=== PATIENT | female | born 1985 | race African-American/Black ===

== ENCOUNTER 2016-12-18 18:19 | Observation (INO) | payer MEDICARE, OTHER ==
--- NOTE | ~2016-12-18 | BMI ---
[facility] Nutrition Therapy DATE: 12/19/16 Patient: SOHA DELATORRE Physician: CHRISTINE Address: [address] [place] [address] Room/Bed: [address] [place] [address], Zip: [place] [address] Admit Date: 12/18/16 Date of : [birth year] Height: 6 0 Weight: 336 152.5 HIGH BMI NOTE: DX: 31 Y.O. FEMALE ADMITTED FOR HYPERGLYCEMIA ANTHROPOMETRICS: 6'0", WT: 336# (153 KG), BMI: 45.6 DIET: NO DIET ORDER INTERVENTION: 1. NO DIET ORDER RECOMMENDATIONS: 1. ONCE MEDICALLY FEASIBLE, ADVANCE DIET INDICATED TO CC+HH TO PROMOTE GRADUAL WEIGHT LOSS TOWARDS HEALTHY BMI (19.0-25.0) OR +/-10%IBW RD WILL F/U PER PROTOCOL Respectfully, KYLAH ALVAREZ MS, RD, LD Food and Nutritional Services [facility] cc: client file
--- NOTE | ~2016-12-18 | CR72 ---
[facility] A Service of [facility] & [facility] RADIOLOGY TEXT RESULTS PATIENT: SOHA DELATORRE LOCATION: [facility] [id number] : [birth year] UNIT #: [id number] AGE: [address]: Solo Mackey MD SEX: F ORDER DR: [id number] [facility] [address] [facility]. [place], [place] [address] [id number] I MR#: [id number] Acc #: [id number] NAME: SOHA DELATORRE : 1985 SEX: F STUDY DATE/TIME: 12/18/2016 18:25 UNIT: [facility] ROOM: 79341 STUDY DESCRIPTION: CR Chest Single View Portable Attending Physician: Solo Mackey M.D. Referring Physician: Manuel Adkins M.D. Ordering Physician: Daniel Nguyen M.D. Primary Care Physician: Manuel Adkins M.D. MEDICAL IMAGING REPORT This report is preliminary unless electronic signature is present EXAM Portable chest HISTORY Cough and congestion for 3 days. FINDINGS A single AP portable view of the chest shows both lungs to be clear. The heart is normal in size. The mediastinal contour is normal. No significant bone abnormalities are seen. IMPRESSION Normal portable chest. Dictated by... Vitor Sullivan M.D. THIS IS AN ELECTRONICALLY VERIFIED REPORT Vitor Sullivan M.D. at 12/19/2016 3:35 PM DFL/pcl TD: 12/18/2016 23:54 JOB #: [id number] MEDICAL IMAGING REPORT COPY
--- NOTE | ~2016-12-18 | HP ---
Unit #: [id number] #: [id number] Patient: SOHA DELATORRE [id number] [address] [address] [id number] I MR#: [id number] NAME: SOHA DELATORRE ROOM: 573 Age: 31 Sex: F Admission Date: 12/18/2016 : 1985 Attending Physician: Solo Mackey M.D. Referring Physician: Manuel Adkins M.D. Primary Care Physician: Manuel Adkins M.D. HISTORY AND PHYSICAL CHIEF COMPLAINT High blood sugar. HISTORY OF PRESENT ILLNESS This is a 31-year-old female with history of insulin dependent diabetes, acid reflux. She has had a recent urinary tract infection one week ago, been prescribed on Cipro. She said after that she had some upper respiratory symptoms. She went to urgent care and started on steroids, she had been on prednisone. She said she take the blood sugar and her Accu-Cheks were staying high on the machine and she says she has been having some dizziness and lightheadedness and she came to the emergency room, on blood sugar she was found to be 594 and eventually being admitted for hyperglycemia. She denies chest pain, denies fever, chills, cough, or other complaint. PAST MEDICAL HISTORY 1. History of insulin dependent diabetes. 2. Gastroesophageal reflux disease. 3. Obesity. PAST SURGICAL HISTORY Denies any surgical intervention. SOCIAL HISTORY She said that she had been smoking, history of marijuana in the past. She said she had been smoking 8 to 10 cigarettes daily, did drink alcohol socially. Denied illicit drug use. ALLERGIES Aspirin. HOME MEDICATIONS Is the followin. Metformin 1 gram b.i.d. 2. Levemir 60 units at bedtime 3. Levemir 25 units subcu daily 4. Cipro 500 mg b.i.d. 5. Prednisone 40 mg in the morning and 20 mg daily 6. Prilosec 20 mg daily 7. Promethazine cough D one spoon q.6h p.r.n. REVIEW OF SYSTEMS Negative except in the history of present illness. Unit #: [id number] #: [id number] Patient: SOHA DELATORRE PHYSICAL EXAMINATION GENERAL: Middle-aged female lying in the bed comfortably, currently not in any distress. She is alert, awake, and oriented x3, comfortable, not in any distress. VITAL SIGNS: Current vitals are the following, temperature 98.2, heart rate 98, respiratory rate 16, and blood pressure 125/73, oxygen 98% on room air. HEENT EXAMINATION: Pupils equally reactive to light and accommodation. Head: Normocephalic and atraumatic. NECK: Supple. No jugular venous distention. HEART: S1 and S2, regular rate and rhythm. ABDOMEN: Soft, nontender, and nondistended. Bowel sounds are positive. EXTREMITIES: Inspection normal. No cyanosis, no clubbing, and no edema. NEUROLOGIC: No focal neurologic deficit. DIAGNOSTIC STUDIES LABORATORY: Laboratory workup is the following, flu is negative. Glucose 544. ABG shows, pH 7.39, O2 46, CO2 41. Chemistry, sodium 131, potassium 5, chloride 95, glucose 594, BUN 23, creatinine 1.23, LFT within normal limits. Total protein 9.1, white count is 18, hemoglobin is 14, hematocrit 44, platelets 360. Urine, glucose more than 1000, WBC 5-10. IMAGING: Chest x-ray is negative. ASSESSMENT/PLAN 1. Hyperglycemia most likely secondary to prednisone. Admit the patient, stop the prednisone, continue home dose of Levemir and place on sliding scale, continue metformin. 2. Urinary tract infection. She had been treated with Cipro, hold Cipro and while in the hospital start on IV Rocephin and followup culture. 3. Leukocytosis is most likely secondary to steroids. 4. History of insulin dependent diabetes. 5. Gastroesophageal reflux disease. 6. Obesity. 7. DVT prophylaxis, place the patient on Lovenox. Dictated by Karen Zurita M.D. GABY/ilir TD: 12/19/2016 11:43 JOB #: [id number] HISTORY AND PHYSICAL X X HISTORY AND PHYSICAL
--- NOTE | ~2016-12-18 | DS ---
Unit #: [id number] #: [id number] Patient: SOHA ALFONSO [id number] [address] [place], [place] [address] [id number] I MR#: [id number] NAME: SOHA ALFONSO ROOM: 573 Age: 31 Sex: F Admission Date: 12/18/2016 : 1985 Discharge Date: 12/19/2016 Attending Physician: Solo Mackey M.D. Referring Physician: Manuel Adkins M.D. Primary Care Physician: Manuel Adkins M.D. DISCHARGE SUMMARY PRINCIPAL DIAGNOSES 1. Severe steroid-induced hyperglycemia. 2. Diabetes mellitus type 2, insulin requiring, uncontrolled, with hemoglobin A1c of 11.4. 3. Acute bronchitis. 4. Questionable urinary tract infection with pending urine culture. 5. Gastroesophageal reflux disease. 6. Morbid obesity. 7. Probable chronic bronchitis. CONSULTANTS None. PROCEDURES Chest x-ray on December 18, 2016, which was normal. CLINICAL HISTORY AND HOSPITAL COURSE Ms. Alfonso is a 31-year-old female with a history of diabetes, who presented to the emergency department after glucometer reading at home read high. Please refer to History and Physical for further details. Glucose here upon presentation was elevated at 594. Patient was subsequently placed in observation for evaluation. Patient was placed back on her home dose of insulin, and her blood sugars still remained significantly elevated in the 300s. However, her hemoglobin A1c is also significantly elevated at 11.4. I am going to adjust her doses of Levemir upon discharge, but I honestly think she would benefit from the addition of mealtime NovoLog to improve sugar control. I have discussed this with the patient, and she can further discuss this with her primary care provider at followup. Patient again had recently been placed on steroids due to her bronchitis, and of course, these were discontinued. Her white blood cell count has been elevated anywhere from approximately 17,000 to 27,000, but she has remained afebrile and clinically looks quite well. I am going to add some Omnicef for bronchitis upon discharge, and white blood cell count can be followed up as an outpatient. Patient's other chronic conditions remain stable, and she will be discharged home today. DISCHARGE CONDITION Stable. Unit #: [id number] #: [id number] Patient: SOHA ALFONSO DISCHARGE STATUS Discharge to home. DISCHARGE MEDICATIONS 1. Omnicef 300 mg p.o. b.i.d. for 5 days. 2. Metformin 1000 mg b.i.d. 3. Promethazine DM cough syrup 5 mL q.4 hours p.r.n. for cough. 4. Levemir 80 units subcutaneously at bedtime and 35 units in the morning. 5. Prilosec 20 mg daily. DISCHARGE INSTRUCTIONS 1. Patient was instructed to follow a heart-healthy, constant carbohydrate diet, and she has received diabetic education. 2. She can increase her activity as tolerated. 3. She should check Accu-Cheks at least twice daily at home, once fasting, and one (1) two hours postprandial to monitor sugar readings. FOLLOWUP Patient should follow up with her primary care physician, Dr. Adkins, in two weeks. Dictated by... Vannesa Robles M.D. Patricia TD: 12/20/2016 20:28 JOB #: [id number] DISCHARGE SUMMARY X Vannesa Robles MD DISCHARGE SUMMARY
[2016-12-18 17:01] LABS: ARTERIAL BLD GAS O2 SATURATION 77.7 % (90.0-100.0); ARTERIAL BLOOD GAS HCO3 25.2 mmol/L; ARTERIAL BLOOD GAS MET HB 0.7 %sat (0.0-2.0); ARTERIAL BLOOD GAS PCO2 41.4 mmHg (35.0-45.0); ARTERIAL BLOOD GAS pH 7.393 (7.350-7.450)
[2016-12-18 17:02] LABS: ARTERIAL BLOOD GAS PO2 46.3 mmHg (80.0-100); ARTERIAL DRAW? NO
[2016-12-18 17:25] LABS: BASOPHIL# 0.1 X10e3 (0-0.3); BASOPHIL% 0.3 % (0-2.5); EOSINOPHIL% 0.1 % (0.0-7.0); HEMATOCRIT 44.2 % (35.0-45.0); HEMOGLOBIN 14.6 gm/dL (12.0-16.0); LYMPHOCYTE# 3.4 X10e3 (1.0-3.5); LYMPHOCYTE% 17.8 % (17.0-45.0); MEAN CELL VOLUME 91.4 FL (83-96); MEAN CORPUSCULAR HEMOGLOBIN 30.1 PG (28-34); MEAN PLATELET VOLUME 9.6 FL (6.5-11.5); MONOCYTE# 0.7 X10e3 (0-1.0); MONOCYTE% 3.6 % (3.0-12.0); NEUTROPHIL# 14.8 X10e3 (1.5-7.1); NEUTROPHIL% 78.2 % (40-75); PLATELET COUNT 360 X10e3 (140-420); RED BLOOD COUNT 4.84 X10e (3.90-5.30); RED CELL DISTRIBUTION WIDTH 14.2 % (11.0-15.5); WHITE BLOOD COUNT 18.9 X10e3 (4.0-10.5)
[2016-12-18 17:27] LABS: DIFF IND YES
[2016-12-18 17:28] LABS: ALBUMIN SERUM 4.3 g/dL (3.5-5.0); ALKALINE PHOSPHATASE 123 U/L (32-92); ALT (SGPT) 13 U/L (10-40); AST (SGOT) 15 U/L (10-42); BETA HYDROXYBUTYRATE 1.14 MMOL/L (0.02-0.27); BILIRUBIN, DIRECT 0.1 mg/dL (0.0-0.2); BILIRUBIN,TOTAL 1.1 mg/dL (0.2-2.0); BLOOD UREA NITROGEN 23 mg/dL (9-23); BUN/CREATININE RATIO 19.16; CALCIUM SERUM 9.4 mg/dL (8.4-10.2); CARBON DIOXIDE 23 mmol/L (22-31); CHLORIDE 95 mmol/L (100-111); CREATININE SERUM 1.2 mg/dL (0.6-1.4); GLOM FILT RATE Estimated ABOVE60 mL/min (>60); PROTEIN TOTAL SERUM 9.1 g/dL (6.0-8.3); SODIUM 131 mmol/L (135-145)
[2016-12-18 17:29] LABS: GLUCOSE FASTING 594 mg/dL (70-110)
[2016-12-18 17:45] LABS: PLATELET ESTIMATE NORMAL (NORMAL); RBC NORMAL YES
[~2016-12-18 18:19] MED LIST: BACTRIM DS TABL1 TA1 PO; KEFLEX500 M1 PO; LORTAB 5/500 TA1 TA1 PO
[2016-12-18 18:45] LABS: URINE SOURCE CLEAN CATCH
[2016-12-18 18:51] LABS: URINE APPEARANCE CLEAR; URINE BILIRUBIN NEG (NEG); URINE BLOOD TRACE (NEG); URINE COLOR YELLOW; URINE GLUCOSE >1000 MG/DL (NEG); URINE KETONE 1+ (NEG); URINE LEUKOCYTE ESTERASE NEG (NEG); URINE NITRATE NEG (NEG); URINE PROTEIN TRACE (NEG); URINE SPECIFIC GRAVITY 1.045 (1.003-1.035); URINE UROBILINOGEN 0.2 MG/DL (NEG)
[2016-12-18 18:54] LABS: CULTURE INDICATED? YES; URINE BACTERIA AUWI 2+ (NEGATIVE); URINE SQUAMOUS EPITHELIAL CELL OCC /[HPF]
[2016-12-18] MEDS ORDERED: CIPRO250 MG PO (20:43)
[2016-12-18] MEDS ORDERED: PREDNISOLONE5 MG PO ×2 (20:44→20:46)
[2016-12-18] MEDS ORDERED: PRILOSEC10 M1 PO (20:48)
[2016-12-18] MEDS ORDERED: PROMETHAZINE D118 ML PO (20:49)
[2016-12-18] MEDS ORDERED: METFORMIN HCL1000 M2 PO (20:51)
[2016-12-18] MEDS ORDERED: LEVEMIR100 UNITS/ SUBQ ×2 (20:51→20:52)
[2016-12-19 07:45] LABS: HEMATOCRIT 42.1 % (35.0-45.0); HEMOGLOBIN 13.7 gm/dL (12.0-16.0); MEAN CELL VOLUME 91.1 FL (83-96); MEAN CORPUSCULAR HEMOGLOBIN 29.7 PG (28-34); MEAN CORPUSCULAR HGB CONC 32.6 g/dL (30-36); MEAN PLATELET VOLUME 9.8 FL (6.5-11.5); RED BLOOD COUNT 4.63 X10e (3.90-5.30); RED CELL DISTRIBUTION WIDTH 14.1 % (11.0-15.5)
[2016-12-19 08:19] LABS: BLOOD UREA NITROGEN 17 mg/dL (9-23); BUN/CREATININE RATIO 21.25; CARBON DIOXIDE 23 mmol/L (22-31); CHLORIDE 102 mmol/L (100-111); CREATININE SERUM 0.8 mg/dL (0.6-1.4); GLOM FILT RATE Estimated ABOVE60 mL/min (>60); GLUCOSE FASTING 314 mg/dL (70-110); POTASSIUM 4.8 mmol/L (3.5-5.1); SODIUM 135 mmol/L (135-145)
[2016-12-19] MEDS ORDERED: OMNICEF300 MG PO (09:13)
[2016-12-19] MEDS ORDERED: ACCU-CHEK FAST1 EACH MC (10:12)
[2016-12-19] MEDS ORDERED: TEST STRIPS (10:12)
== END 2016-12-19 20:05 | disposition home or self-care (01) ==
LOC: CED 18:19 → CEDOF 21:40 → C5C 23:59
PROVIDERS: Emergency Medicine; Internal Medicine
DX: E11.65 Type 2 diabetes mellitus with hyperglycemia (principal); T38.0X5A Adverse effect of glucocorticoids and synthetic analogues, initial encounter; J20.9 Acute bronchitis, unspecified; Z79.4 Long term (current) use of insulin; Z79.84 Long term (current) use of oral hypoglycemic drugs; N39.0 Urinary tract infection, site not specified; D72.829 Elevated white blood cell count, unspecified; K21.9 Gastro-esophageal reflux disease without esophagitis; E66.01 Morbid (severe) obesity due to excess calories; F17.210 Nicotine dependence, cigarettes, uncomplicated
CPT/HCPCS: 36415; 71010; 80048; 80076; 81003; 82010; 82803; 82947; 83036; 84703; 85025; 85027; 87086; 94640; 94760; 96360; 96361; 96372; 96374; 96375; 99285; G0378; J0696; J1650; J1815